=== PATIENT | female | born 1950 | race Caucasian/White ===

== ENCOUNTER 2019-10-13 10:00 | Outpatient (RCR) | payer MEDICARE, SELFPAY | END 2019-10-13 23:59 | disposition home or self-care (01) | LOC: ANHAUDIO 10:00 | PROVIDERS: Visit Provider Family Medicine | DX: Z46.1 Encounter for fitting and adjustment of hearing aid (principal) | CPT/HCPCS: 99199; V5160; V5261 ==

== ENCOUNTER → 2019-12-20 12:17 | Outpatient (CLI) | payer MEDICARE, SELFPAY ==
--- NOTE | ~2019-12-20 | MM_ITS ---
EXAMINATION: MM screening [facility] BI w jose m HISTORY: Screening mammogram TECHNIQUE: Craniocaudal and mediolateral oblique 3-D tomosynthesis images were obtained and synthetic 2-D images were generated. CAD analysis was submitted and interpreted. COMPARISON: 12/07/2018, 09/09/2017, 07/17/2015 BREAST PARENCHYMAL COMPOSITION: There are scattered areas of fibroglandular density. FINDINGS: There is no evidence of suspicious mass, calcification, or architectural distortion to sugg est malignancy in either breast. There has been no suspicious interval change. IMPRESSION: 1. No mammographic evidence of malignancy. 2. Recommend routine screening mammography in one year. BI-RADS Category 1: Negative Reviewed, dictated and finalized at location A. 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
--- NOTE | ~2019-12-20 | DEXA_ITS ---
Bone Density Report Name: Saritha Blackburn Age: 69 Sex: Female Ethnicity: White Date of : 1950 Indication: osteopenia; postmenopausal Referring Provider: ELVIRA SHEA Study: Bone densitometry was performed. Exam Date: December 20, 2019 Accession number: [id number] Bone Density: Region BMD T-score Z-score Classification AP Spine (L1, L2, L3) 0.768 -2.3 -0.3 Osteopenia Femoral Neck (Left) 0.730 -1.1 0.6 Osteopenia Total Hip (Left) 0.898 -0.4 1.0 Normal Femoral Neck (Right) 0.734 -1.0 0.6 Normal Total Hip (Right) 0.867 -0.6 0.8 Normal Total Hip Mean 0.883 -0.5 0.9 Normal World Health Organization criteria for BMD impression classify patients as: Normal (T-score at or above -1.0), Osteopenia (T-score between -1.0 and -2.5), or Osteoporosis (T-score at or below -2.5). 10-year Fracture Risk(1): Major Osteoporotic Fracture 8.5% Hip Fracture 0.8% Reported Risk Factors: [place] (), Neck BMD=0.730, BMI=29.8 (1) FRAX(R) Version 3.08. Fracture probability calculated for an untreated patient. Fracture probability may be lower if the patient has received treatment. Previous Exams: Region Exam Age BMD T-score BMD Change BMD Change Date g/cm2 vs Baseline vs Previous AP Spine(L1, L2, L3) 12/20/2019 69 0.768 -2.3 -0.030* -0.038* 09/09/2017 66 0.806 -1.9 0.008 0.011 02/18/2016 65 0.795 -2.0 -0.002 0.032* 03/09/2009 58 0.763 -2.3 -0.035* -0.035* 09/17/2005 54 0.797 -2.0 Total Hip(Left) 12/20/2019 69 0.898 -0.4 -0.067 -0.089 09/09/2017 66 0.987 0.4 0.022 0.004 02/18/2016 65 0.983 0.3 0.018 0.127 03/09/2009 58 0.856 -0.7 -0.110 -0.110 09/17/2005 54 0.965 0.2 Total Hip(Right) 12/20/2019 69 0.867 -0.6 -0.056* -0.076* 09/09/2017 66 0.943 0.0 0.020 0.029* 02/18/2016 65 0.915 -0.2 -0.009 0.048* 03/09/2009 58 0.867 -0.6 -0.057* -0.057* 09/17/2005 54 0.924 -0.2 *Denotes significance at 95% confidence level, LSC for AP Spine = 0.022 g/cm2, LSC for Total Hip = 0.027 g/cm2 Clinical Information Provided by Patient: Patient maximum height was 63 Menopause Age: 45 No regular weight bearing exercise Drinks caffeinated beverages Onset of menses at age 13 Number of children 2
== END ==
PROVIDERS: Visit Provider Obstetrics & Gynecology Gynecology
DX: Z12.31 Encounter for screening mammogram for malignant neoplasm of breast (principal); Z78.0 Asymptomatic menopausal state; M85.88 Other specified disorders of bone density and structure, other site; M85.852 Other specified disorders of bone density and structure, left thigh
CPT/HCPCS: 77063; 77067; 77080

== ENCOUNTER → 2021-02-21 12:15 | Outpatient (CLI) | payer MEDICARE, SELFPAY ==
--- NOTE | ~2021-02-21 | MM_ITS ---
EXAMINATION: MM screening [facility] BI w jose m HISTORY: Screening mammogram TECHNIQUE: Craniocaudal and mediolateral oblique 3-D tomosynthesis images were obtained and synthetic 2-D images were generated. CAD analysis was submitted and interpreted. COMPARISON: 12/20/2019, 12/07/2018, 09/09/2017 BREAST PARENCHYMAL COMPOSITION: There are scattered areas of fibroglandular density. FINDINGS: There is no evidence of suspicious mass, calcification, or architectural distortion to sugg est malignancy in either breast. There has been no suspicious interval change. IMPRESSION: 1. No mammographic evidence of malignancy. 2. Recommend routine screening mammography in one year. BI-RADS Category 1: Negative Reviewed, dictated and finalized at location A.
== END ==
PROVIDERS: PCP Family Medicine; Visit Provider Obstetrics & Gynecology Gynecology
DX: Z12.31 Encounter for screening mammogram for malignant neoplasm of breast (principal)
CPT/HCPCS: 77063; 77067

== ENCOUNTER 2022-02-17 01:13 | Day surgery (SDC) | payer MEDICARE, SELFPAY ==
[2022-02-11 09:45] VITALS: BMI 30.2
[2022-02-17 10:18] VITALS: BP 143/91; PULSE 70; RESP 20; TEMP 36.2; O2SAT 97; BMI 30.4
[2022-02-17] MEDS: LACTATED RINGERS 1,000 ML 150 ML IV CONT (10:26)
--- NOTE | 2022-02-17 10:26 | WPDANESEPPF ---
Anes - Initial Pre Proc Eval Procedure: Operation Date: 02/17/22 11:00 Proposed Procedures p Esophagogastroduodenoscopy - Lenny Brooks MD Date/Time: 02/17/22 10:26 Surgeon: Lenny Brooks MD Pre Op Diagnosis: dysphagia Patient Data Age: 71 Gender: F Height: 1.57 m Weight: 75.6 kg Last Vital Signs Temp 36.2 C L 02/17/22 10:18 Pulse 70 02/17/22 10:18 Resp 20 02/17/22 10:18 BP 143/91 H 02/17/22 10:18 Pulse Ox 97 02/17/22 10:18 Allergies Allergy/AdvReac Type Severity Reaction Status Date / Time No Known Allergies Allergy Verified 02/17/22 10:16 Home Medications Medication Instructions Recorded Confirmed Type multivit with 1 tablet PO DAILY 03/25/21 02/11/22 History lcqskftr-euct-YM-lutein 8 mg iron-400 mcg-300 mcg tablet omega-3 fatty acids 1,000 mg 2,000 mg PO DAILY cap 03/25/21 02/11/22 History capsule oxybutynin chloride 10 mg 10 mg PO DAILY 03/25/21 02/11/22 History tablet,extended release 24 hr amitriptyline 25 mg tablet 25 mg PO QHS #30 tablet 02/05/22 02/11/22 Rx cholecalciferol (vitamin D3) 125 125 mcg PO DAILY 02/05/22 02/11/22 History mcg (5,000 unit) disintegrating tablet atorvastatin 20 mg PO DAILY 02/11/22 02/11/22 History vit C,P-Sf-slubr-lutein-zeaxan 1 tablet PO DAILY 02/11/22 02/11/22 History [PreserVision AREDS-2] Patient hx anesthesia problems: none Family hx anesthesia problems: none Results Review: All pre-operative results and documents have been reviewed as part of the pre-operative evaluation. [facility] Past Medical History Medical History Hepatitis C antibody test positive (~08/21/17) HCV RNA test negative Metabolic syndrome X Mixed hyperlipidemia Prediabetes Prehypertension Vitamin D deficiency Surgical History Surgical History History of blepharoplasty ~2003 History of cataract removal with insertion of prosthetic lens (~08/02/19) bilateral, 09-02-19 History of tubal ligation (~1979) Family History Family History Mother Hypertension Family history of cardiovascular disease Family history of Alzheimer's disease Diabetes mellitus Family history of glaucoma Family history of elevated blood lipids Acute myocardial infarction Family history of coronary artery disease Sibling Hypertension Family history of elevated blood lipids Social History Social History Years smoked: 3 Smoking status: Former smoker Tobacco type: cigarettes Smoking end date: 11/02/71 Alcohol intake: current Alcohol use details: very rare alcohol use Substance use: never Substance use type: does not use Living arrangements: with family Spiritual care concerns: No Anes - Eval Final PreProcedure Day of Procedure 02/17/22 10:26 Patient weight: obese Heart: regular rate and rhythm Lungs: clear to auscultation Airway: Mallampati scale class II and special considerations retrognathia Neurological: alert and oriented Last oral intake: >/= 8 hours ASA classification: II Emergent: no Anesthetic plan: proceed Anesthesia type and monitoring: general GIVS and standard monitoring Results Review: All pre-operative results and documents have been reviewed as part of the pre-operative evaluation. Informed Consent: The patient's anesthetic plan and its attendant risks and benefits were discussed with the patient/family/POA. Questions were solicited and answers provided to the satisfaction of the patient/family/POA.
--- NOTE | 2022-02-17 10:27 | WPDHPUPDATE1 ---
History and Physical Update Update Date/Time: 02/17/22 10:27 History and Physical has been reviewed, including an updated exam of the patient. There are NO changes in the patient's condition. Risks, benefits, and alternatives have been discussed and questions answered. Patient agrees to proceed with procedure.
[2022-02-17 11:29] VITALS: BP 117/75; PULSE 70; RESP 15; O2SAT 95
[2022-02-17 11:39] VITALS: BP 108/80; PULSE 74; RESP 13; O2SAT 98
[2022-02-17 11:49] VITALS: BP 139/89; PULSE 68; RESP 17; O2SAT 98
== END 2022-02-17 12:00 | disposition home or self-care (01) ==
PROVIDERS: PCP Family Medicine; Visit Provider Internal Medicine Gastroenterology
PROC: 0DJ08ZZ Inspection of Upper Intestinal Tract, Via Natural or Artificial Opening Endoscopic (ICD-10-PCS; CPT 43235; principal; 2022-02-17 11:00)
DX: F45.8 Other somatoform disorders (principal); E78.2 Mixed hyperlipidemia; R73.03 Prediabetes; E55.9 Vitamin D deficiency, unspecified; Z87.891 Personal history of nicotine dependence; E66.9 Obesity, unspecified; Z68.30 Body mass index [BMI] 30.0-30.9, adult
CPT/HCPCS: 43239; 87081; J2704; J7120

== ENCOUNTER → 2022-03-13 10:16 | Outpatient (CLI) | payer MEDICARE, SELFPAY ==
--- NOTE | ~2022-03-13 | MM_ITS ---
EXAMINATION: MM screening [facility] BI w jose m HISTORY: Screening TECHNIQUE: Craniocaudal and mediolateral oblique 3-D tomosynthesis images were obtained and synthetic 2-D images were generated. CAD analysis was submitted and interpreted. COMPARISON: Comparison to multiple prior studies sequentially, with oldest reviewed study dated 07/17. BREAST PARENCHYMAL COMPOSITION: There are scattered areas of fibroglandular density. FINDINGS: There is no evidence of suspicious mass, calcification, or architectural distortion to sugg est malignancy in either breast. There has been no suspicious interval change. IMPRESSION: 1. No mammographic evidence of malignancy. 2. Recommend routine screening mammography in one year. BI-RADS Category 1: Negative Reviewed, dictated and finalized at location A.
--- NOTE | ~2022-03-13 | DEXA_ITS ---
Bone Density Report Name: VAISHNAVI WELSH Age: 71 Sex: Female Ethnicity: White Date of : 1950 Indication: osteopenia; postmenopausal Referring Provider: ELVIRA SHEA Study: Bone densitometry was performed. Exam Date: March 13, 2022 Accession number: [id number] Bone Density: Region BMD T-score Z-score Classification AP Spine (L1, L2, L3) 0.793 -2.0 0.0 Osteopenia Femoral Neck (Left) 0.721 -1.2 0.7 Osteopenia Total Hip (Left) 0.899 -0.3 1.2 Normal Femoral Neck (Right) 0.734 -1.0 0.8 Normal Total Hip (Right) 0.879 -0.5 1.0 Normal Total Hip Mean 0.889 -0.4 1.1 Normal World Health Organization criteria for BMD impression classify patients as: Normal (T-score at or above -1.0), Osteopenia (T-score between -1.0 and -2.5), or Osteoporosis (T-score at or below -2.5). 10-year Fracture Risk(1): Major Osteoporotic Fracture 8.8% Hip Fracture 1.0% Reported Risk Factors: [place] (), Neck BMD=0.721, BMI=30.2 (1) FRAX(R) Version 3.08. Fracture probability calculated for an untreated patient. Fracture probability may be lower if the patient has received treatment. Previous Exams: Region Exam Age BMD T-score BMD Change BMD Change Date g/cm2 vs Baseline vs Previous AP Spine(L1, L2, L3) 03/13/2022 71 0.793 -2.0 -0.004 0.025* 12/20/2019 69 0.768 -2.3 -0.030* -0.038* 09/09/2017 66 0.806 -1.9 0.008 0.011 02/18/2016 65 0.795 -2.0 -0.002 0.032* 03/09/2009 58 0.763 -2.3 -0.035* -0.035* 09/17/2005 54 0.797 -2.0 Total Hip(Left) 03/13/2022 71 0.899 -0.3 -0.066 0.002 12/20/2019 69 0.898 -0.4 -0.067 -0.089 09/09/2017 66 0.987 0.4 0.022 0.004 02/18/2016 65 0.983 0.3 0.018 0.127 03/09/2009 58 0.856 -0.7 -0.110 -0.110 09/17/2005 54 0.965 0.2 Total Hip(Right) 03/13/2022 71 0.879 -0.5 -0.045* 0.012 12/20/2019 69 0.867 -0.6 -0.056* -0.076* 09/09/2017 66 0.943 0.0 0.020 0.029* 02/18/2016 65 0.915 -0.2 -0.009 0.048* 03/09/2009 58 0.867 -0.6 -0.057* -0.057* 09/17/2005 54 0.924 -0.2 *Denotes significance at 95% confidence level, LSC for AP Spine = 0.022 g/cm2, LSC for Total Hip = 0.027 g/cm2 Clinical Information Provided by Patient: Has use
== END ==
PROVIDERS: PCP Family Medicine; Visit Provider Obstetrics & Gynecology Gynecology
DX: Z12.31 Encounter for screening mammogram for malignant neoplasm of breast (principal); Z78.0 Asymptomatic menopausal state; M85.89 Other specified disorders of bone density and structure, multiple sites
CPT/HCPCS: 77063; 77067; 77080

== ENCOUNTER 2022-06-16 08:09 | Outpatient (CLI) | payer MEDICARE, SELFPAY ==
[2022-06-16 18:43] LABS: Hematocrit 49.8 % (37.0-47.0); Hemoglobin 15.8 g/dL (12.0-15.0); Mean Corpuscular HGB Conc 31.7 g/dl (32-36); Mean Corpuscular Hemoglobin 30.7 pg (26-34); Mean Corpuscular Volume 96.9 fl (80-100); Mean Platelet Volume 10.3 fl (7.4-10.4); Platelet Count Result 309 k/mm3 (150-375); Red Blood Count 5.14 M/mm3 (4.2-5.4); Red Cell Distribution Width 13.2 % (11.5-14.5); White Blood Count 5.8 K/mm3 (4.5-10.0)
[2022-06-16 19:14] LABS: Alanine Aminotransferase 30 U/L (6-35); Albumin Level 4.6 g/dL (3.5-5.1); Alkaline Phosphatase 48 U/L (38-126); Anion Gap 10 mmol/L (8-16); Aspartate Amino Transferase 36 U/L (14-36); Bilirubin,Total 1.6 mg/dL (0.2-1.3); Blood Urea Nitrogen 18 mg/dL (7-17); Calcium 9.8 mg/dL (8.4-10.2); Carbon Dioxide 30 mmol/L (22-30); Chloride 100 mmol/L (98-107); Cholesterol 214 mg/dL (0-200); Estimated Glomerular Filt Rate > 60; Glucose 77 mg/dL (65-110); HDL Direct 43 mg/dL; Potassium 4.5 mmol/L (3.4-5.0); Sodium 140 mmol/L (137-145); Triglycerides 174 mg/dL (<150)
[2022-06-16 19:32] LABS: LDL Cholesterol Direct 117 mg/dL
[2022-06-16 20:52] LABS: Vitamin D 25 Hydroxy 86.6 ng/mL
== END 2022-06-16 08:10 | disposition home or self-care (01) ==
LOC: ANHGOSHLAB 08:10
PROVIDERS: PCP Family Medicine; Visit Provider Nurse Practitioner
DX: Z13.6 Encounter for screening for cardiovascular disorders (principal); E78.2 Mixed hyperlipidemia; Z13.29 Encounter for screening for other suspected endocrine disorder; E55.9 Vitamin D deficiency, unspecified
CPT/HCPCS: 36415; 80053; 80061; 82306; 84443; 85027

== ENCOUNTER → 2023-03-16 10:03 | Outpatient (CLI) | payer MEDICARE, SELFPAY ==
--- NOTE | ~2023-03-16 | MM_ITS ---
EXAMINATION: MM screening [facility] BI w jose m HISTORY: Screening mammogram TECHNIQUE: Craniocaudal and mediolateral oblique 3-D tomosynthesis images were obtained and synthetic 2-D images were generated. CAD analysis was submitted and interpreted. COMPARISON: 03/13/2022, 02/21/2021, 12/20/2019 BREAST PARENCHYMAL COMPOSITION: The breasts are heterogeneously dense, which may obscure small masses . FINDINGS: No suspicious mass, calcification, or architectural distortion are identified in either louise ast to suggest malignancy. There has been no suspicious interval change. IMPRESSION: 1. No mammographic evidence of malignancy. 2. Recommend routine screening mammography in one year. BI-RADS Category 1: Negative Reviewed, dictated and finalized at location A.
== END ==
PROVIDERS: PCP Family Medicine; Visit Provider Obstetrics & Gynecology Gynecology
DX: Z12.31 Encounter for screening mammogram for malignant neoplasm of breast (principal)
CPT/HCPCS: 77063; 77067

== ENCOUNTER 2024-03-23 10:33 | Outpatient (CLI) | payer MEDICARE, SELFPAY ==
--- NOTE | ~2024-03-23 | DEXA_ITS ---
Bone Density Report Name: VAISHNAVI WELSH Age: 73 Sex: Female Ethnicity: White Date of : 1950 Indication: osteopenia; height loss; Referring Provider: ELVIRA SHEA Study: Bone densitometry was performed. Exam Date: March 23, 2024 Accession number: [id number] Bone Density: Region BMD T-score Z-score Classification AP Spine (L1, L2, L3) 0.797 -2.0 0.2 Osteopenia Femoral Neck (Left) 0.713 -1.2 0.7 Osteopenia Total Hip (Left) 0.821 -1.0 0.6 Normal Femoral Neck (Right) 0.668 -1.6 0.3 Osteopenia Total Hip (Right) 0.807 -1.1 0.5 Osteopenia Total Hip Mean 0.814 -1.1 0.6 Osteopenia World Health Organization criteria for BMD impression classify patients as: Normal (T-score at or above -1.0), Osteopenia (T-score between -1.0 and -2.5), or Osteoporosis (T-score at or below -2.5). 10-year Fracture Risk(1): Major Osteoporotic Fracture 11% Hip Fracture 1.9% Reported Risk Factors: [place] (), Neck BMD=0.668, BMI=27.5 (1) FRAX(R) Version 3.08. Fracture probability calculated for an untreated patient. Fracture probability may be lower if the patient has received treatment. Previous Exams: Region Exam Age BMD T-score BMD Change BMD Change Date g/cm2 vs Baseline vs Previous AP Spine(L1, L2, L3) 03/23/2024 73 0.797 -2.0 0.000 0.004 03/13/2022 71 0.793 -2.0 -0.004 0.025* 12/20/2019 69 0.768 -2.3 -0.030* -0.038* 09/09/2017 66 0.806 -1.9 0.008 0.011 02/18/2016 65 0.795 -2.0 -0.002 0.032* 03/09/2009 58 0.763 -2.3 -0.035* -0.035* 09/17/2005 54 0.797 -2.0 Total Hip(Left) 03/23/2024 73 0.821 -1.0 -0.145 -0.079* 03/13/2022 71 0.899 -0.3 -0.066 0.002 12/20/2019 69 0.898 -0.4 -0.067 -0.089 09/09/2017 66 0.987 0.4 0.022 0.004 02/18/2016 65 0.983 0.3 0.018 0.127 03/09/2009 58 0.856 -0.7 -0.110 -0.110 09/17/2005 54 0.965 0.2 Total Hip(Right) 03/23/2024 73 0.807 -1.1 -0.117* -0.073* 03/13/2022 71 0.879 -0.5 -0.045* 0.012 12/20/2019 69 0.867 -0.6 -0.056* -0.076* 09/09/2017 66 0.943 0.0 0.020 0.029* 02/18/2016 65 0.915 -0.2 -0.009 0.048* 03/09/2009 58 0.867 -0.6 -0.057* -0.057* 09/17/2005 54 0.924 -0.2 *Denotes significance at 95% con
--- NOTE | ~2024-03-23 | MM_ITS ---
EXAMINATION: MM screening [facility] BI w jose m HISTORY: Screening TECHNIQUE: Craniocaudal and mediolateral oblique 3-D tomosynthesis images were obtained and synthetic 2-D images were generated. CAD analysis was submitted and interpreted. COMPARISON: Comparison to multiple prior studies sequentially, with oldest reviewed study dated 06/2017. BREAST PARENCHYMAL COMPOSITION: Not dense: There are scattered areas of fibroglandular density. FINDINGS: There is no evidence of suspicious mass, calcification, or architectural distortion to sugg est malignancy in either breast. There has been no suspicious interval change. IMPRESSION: 1. No mammographic evidence of malignancy. 2. Recommend routine screening mammography in one year. BI-RADS Category 1: Negative Reviewed, dictated and finalized at location A.
== END 2024-03-23 10:34 ==
LOC: MICIMG 10:35
PROVIDERS: PCP Family Medicine; Visit Provider Obstetrics & Gynecology Gynecology
DX: Z12.31 Encounter for screening mammogram for malignant neoplasm of breast (principal); M85.89 Other specified disorders of bone density and structure, multiple sites; R29.890 Loss of height; Z78.0 Asymptomatic menopausal state
CPT/HCPCS: 77063; 77067; 77080

== ENCOUNTER 2025-01-16 13:23 | Outpatient (CLI) | payer MEDICARE, SELFPAY ==
--- NOTE | ~2025-01-16 | XR_ITS ---
XR knee RT 3V Ordering provider: Mallorie Draper, SCREEDMAN/LABORER-C History: . M25.561 - Pain in right knee . Comparison: None. FINDINGS: BONES: No acute fracture or dislocation. JOINT SPACES: Normal. SOFT TISSUES: Atherosclerotic changes. IMPRESSION: No acute osseous abnormality right knee. Reviewed, dictated and finalized at location A.
--- NOTE | ~2025-01-16 | XR_ITS ---
XR hip BI 2V w AP pelvis Ordering provider: Mallorie Draper CORPORATE WEBMASTER-C History: . M25.551 - Pain in right hip . Comparison: None. FINDINGS: BONES: No acute fracture or dislocation. HIP JOINT SPACES: Bilateral severe osteoarthritic changes. SACROILIAC JOINT SPACES/LUMBAR SPINE: The sacroiliac joint spaces are normal. Mild degenerative bond es of the visualized lower lumbar spine. PUBIC SYMPHYSIS: Normal. SOFT TISSUES: Normal. IMPRESSION: No acute osseous abnormality of the bilateral hips and pelvis. Bilateral severe hip osteoarthritic changes. Reviewed, dictated and finalized at location A.
--- NOTE | ~2025-01-16 | XR_ITS ---
XR_CERV2-3V_CR Ordering provider: Mallorie Draper JOGGLE PRESS OPERATOR-C History: . M54.2 - Cervicalgia . Comparison: None. FINDINGS: VERTEBRAL BODIES: Normal height and alignment. No visible fracture or subluxation. The dens is intact . Degenerative changes of the spine. DISK SPACES: Narrowing of the disc C5-C6 and C6-C7. Multilevel facet joint disease. Multilevel uncove rtebral joint osteoarthritic changes. PARASPINOUS SOFT TISSUES: No prevertebral soft tissue swelling. IMPRESSION: No acute osseous abnormality cervical spine. Multilevel degenerative disc disease. Reviewed, dictated and finalized at location A.
--- NOTE | ~2025-01-16 | XR_ITS ---
XR shoulder LT min 2V Ordering provider: Mallorie Draper NP-C History: . M25.512 - Pain in left shoulder . Comparison: None. FINDINGS: BONES: No acute fracture or dislocation. Degenerative changes in the greater tuberosity area. JOINT SPACES: The acromioclavicular joint shows osteoarthritic changes.. The glenohumeral joint is no rmal. SOFT TISSUES: Normal. IMPRESSION: No acute osseous abnormality left shoulder. Reviewed, dictated and finalized at location A.
--- NOTE | ~2025-01-16 | XR_ITS ---
XR shoulder RT min 2V Ordering provider: CARMELLA DamonC History: . M25.519 - Pain in unspecified shoulder . Comparison: None. FINDINGS: BONES: No acute fracture or dislocation. Degenerative changes in the greater tuberosity. JOINT SPACES: The acromioclavicular joint is widened due to postsurgical changes. The glenohumeral brody int is normal. SOFT TISSUES: Normal. IMPRESSION: No acute osseous abnormality right shoulder. Reviewed, dictated and finalized at location A.
== END 2025-01-16 13:24 | disposition home or self-care (01) ==
LOC: GOSHIMG 13:24
PROVIDERS: PCP Nurse Practitioner; Visit Provider Nurse Practitioner
DX: M16.0 Bilateral primary osteoarthritis of hip (principal); M50.322 Other cervical disc degeneration at C5-C6 level; M50.323 Other cervical disc degeneration at C6-C7 level; M25.511 Pain in right shoulder; M25.512 Pain in left shoulder; M25.561 Pain in right knee
CPT/HCPCS: 72040; 73030; 73521; 73562

== ENCOUNTER 2025-03-28 10:26 | Outpatient (CLI) | payer MEDICARE, SELFPAY ==
--- NOTE | ~2025-03-28 | MM_ITS ---
EXAMINATION: MM screening [facility] BI w jose m HISTORY: Screening TECHNIQUE: Craniocaudal and mediolateral oblique 3-D tomosynthesis images were obtained and synthetic 2-D images were generated. CAD analysis was submitted and interpreted. COMPARISON: Comparison to multiple prior studies sequentially, with oldest reviewed study dated 03/2019. BREAST PARENCHYMAL COMPOSITION: Not dense: There are scattered areas of fibroglandular density. FINDINGS: There are developing periareolar asymmetries of the left breast in the upper outer quadrant , anterior third. The right breast is stable without evidence for malignancy. IMPRESSION: 1. Developing left breast periareolar asymmetries. 2. Additional mammographic views and possible breast ultrasound are recommended. BI-RADS Category 0: Incomplete: Needs additional imaging evaluation. Reviewed, dictated and finalized at location A. IMPRESSION: 1. Developing left breast periareolar asymmetries. 2. Additional mammographic views and possible breast ultrasound are recommended . BI-RADS Category 0: Incomplete: Needs additional imaging evaluation.
== END 2025-03-28 10:27 | disposition home or self-care (01) ==
LOC: MICIMG 10:27
PROVIDERS: PCP Family Medicine; Visit Provider Obstetrics & Gynecology Gynecology
DX: Z12.31 Encounter for screening mammogram for malignant neoplasm of breast (principal)
CPT/HCPCS: 77063; 77067

== ENCOUNTER 2025-04-18 08:19 | Outpatient (CLI) | payer MEDICARE, SELFPAY ==
--- NOTE | ~2025-04-18 | MMUS_ITS ---
EXAMINATION: MM diagnostic [facility] LT w jose m, US breast LT limited HISTORY: Follow-up left breast asymmetry TECHNIQUE: Additional 3-D tomosynthesis images of the left breast were performed and synthetic 2-D im ages were generated. CAD analysis was submitted and interpreted. High resolution Limited left breast ultrasound was performed. COMPARISON: Comparison to multiple prior studies sequentially, with oldest reviewed study dated 12/20. BREAST PARENCHYMAL COMPOSITION: Dense: The breasts are heterogeneously dense, which may obscure small masses FINDINGS: MAMMOGRAPHIC FINDINGS: Focal area of asymmetry near the areola in the upper outer quadrant is less dense with spot compressi on views, compatible with superimposed fibroglandular tissue. No discrete mass, suspicious calcificat ions or architectural distortion in the left breast. ULTRASOUND: Limited left breast ultrasound: Normal heterogeneous echotexture without focal solid or cystic mass. IMPRESSION: 1. No evidence for malignancy in the left breast. 2. Routine yearly screening mammogram and regular clinical breast examination are recommended. BI-RADS Category 1: Negative Reviewed, dictated and finalized at location A. IMPRESSION: 1. No evidence for malignancy in the left breast. 2. Routine yearly screening mammogram and regular clinical breast examination a re recommended. BI-RADS Category 1: Negative
== END 2025-04-18 08:20 | disposition home or self-care (01) ==
LOC: MICIMG 08:19
PROVIDERS: PCP Family Medicine; Visit Provider Obstetrics & Gynecology Gynecology
DX: R92.8 Other abnormal and inconclusive findings on diagnostic imaging of breast (principal)
CPT/HCPCS: 76642; 77061; 77065; G0279

== ENCOUNTER 2025-08-18 13:34 | Emergency (ER) | payer MEDICARE, SELFPAY ==
[2025-08-18 13:45] VITALS: BP 148/79; PULSE 96; RESP 16; TEMP 36.5; O2SAT 98
--- NOTE | 2025-08-18 14:39 | ED.SKABFB ---
HPI - Skin/Abscess/Foreign Bdy General Chief complaint: Skin/Abscess/Foreign Body Stated complaint: spot on left arm Time Seen by Provider: 08/18/25 14:20 Source: patient, RN notes reviewed and old records reviewed Mode of arrival: ambulatory Limitations: no limitations History of Present Illness HPI narrative: 74 year old female presents to express care with complaints of insect bite shad itching to area on Thursday and Thursday and use ting to the left antecubital area that occurred on Thursday. Patient reports that she has itching ro area on Thursday and Thursday and has used several OTC ointments to area. She states that she did have a pimple like lesion develop in area and she squeezed the lesion with some white material expressed. She is here today with concern for continued dime size raised bump in left inner antecubical MD complaint: insect bite/sting and other (minimal raised red lesion left antecubical) Onset (ago): day(s) (on Thursday 5 days ago) Location: LUE (inner antecubical) Severity: mild Treatments prior to arrival: attempted to drain pus at home and other (OTC ointments) Related Data Home Medications ?Medication ?Instructions ?Recorded ?Confirmed ?Last Taken ?Type dvwctwtq-hlaj-necy 8 mg-folic 400 1 tablet PO DAILY 03/25/21 05/22/25 02/16/22 History mcg-K 50 mcg-lutein 300 mcg tablet (Centrum Silver Women) oxybutynin chloride 10 mg 10 mg PO DAILY 03/25/21 05/22/25 02/16/22 History tablet,extended release 24 hr cholecalciferol (vitamin D3) 125 125 mcg PO DAILY 02/05/22 05/22/25 02/16/22 History mcg (5,000 unit) disintegrating tablet vit C 250 mg-vit E 90 mg-zinc 40 1 tablet PO DAILY 02/11/22 05/22/25 02/16/22 History mg-copper 1 [id number]-vppchs capsule (PreserVision AREDS-2) calcium carbonate (Calcium 600) 600 mg PO DAILY 10/13/22 05/22/25 Unknown History ibuprofen 200 mg capsule 200 mg PO Q6H PRN 01/20/25 05/22/25 Unknown History mupirocin 2 % topical ointment 1 applic topical BID PRN 03/08/25 05/22/25 Unknown History ([facility]) omega-3 fatty acids 1,000 mg 1,200 mg PO DAILY PRN 03/08/25 05/22/25 Unknown History capsule Allergies Allergy/AdvReac Type Severity Reaction Status Date / Time ciprofloxacin (From Cipro) AdvReac Intermediate Nausea Verified 08/18/25 13:59 Review of Systems Review of Systems: CONSTITUTIONAL: Denies fever, chills, or sweats. CARDIOVASCULAR: Denies chest pain, palpitations, or edema. RESPIRATORY: Denies cough or dyspnea. SKIN: Reports insect bite sting to left inner arm on Thursday with 2 days of itch, pimple type of lesion squeezed with white material expressed, concern over continued minimal raised bump left inner arm, no pustule or vesicles MUSCULOSKELETAL: Denies joint pain or myalgia. NEUROLOGIC: Denies headache, numbness, or weakness. All systems reviewed & are unremarkable except as noted in HPI and below PMFSH Past Medical History Medical History Hepatitis C antibody test positive (~08/21/17) HCV RNA test negative Prehypertension Vitamin D deficiency Metabolic syndrome X Prediabetes Mixed hyperlipidemia Surgical History Surgical History History of blepharoplasty ~2003 History of cataract removal with insertion of prosthetic lens (~08/02/19) bilateral, 09-02-19 History of tubal ligation (~1979) Family History Family History Mother Hypertension Family history of cardiovascular disease Family history of Alzheimer's disease Diabetes mellitus Family history of glaucoma Family history of elevated blood lipids Acute myocardial infarction Family history of coronary artery disease Sibling Hypertension Family history of elevated blood lipids Grandparent Heart disease Social History Social History Years smoked: 3 Smoking status: Former smoker Tobacco type: cigarettes Smoking end date: 11/02/71 Alcohol intake: current Alcohol use details: very rare alcohol use Substance use: never Substance use type: does not use Do You Feel Safe in your Home?: Yes Lack of Transportation: No Lack of Food: Never True Current Housing: I Have Housing Concerned About Future Housing: No Difficulty Paying Gas/Electric Bills: No Difficulty Paying for Meds: No Currently Unemployed: No Education: High School Diploma/GED Difficulty w/ Childcare or Family Care: No Living arrangements: with family Additional living arrangements comments: Spouse Occupation/Education: retired Gender identity (if verbalized by the patient): Female Sexual Orientation (if Verbalized by the Patient): Straight or Heterosexual Spiritual care concerns: No Comments At time of signature, agree with nursing past medical, surgical, social and family history. There is no relevant family history pertinent to the presenting complaint Exam Narrative: GENERAL: Well-appearing, well-nourished, and in no acute distress. HEAD: Normocephalic, atraumatic. EYES: PERRLA, conjunctivae clear, and EOMI. ENT: Mucous membranes moist. Oropharynx without edema, erythema or lesions. NECK: Supple. No lymphadenopathy CHEST: Clear to auscultation. No respiratory distress. SAO2 98% on room air HEART: Regular rate and rhythm. SKIN: Warm, dry.? Minimally raised red bump to inner left arm at antecubital region with no vesicle or pustule formation no present itch NEURO:? Alert and oriented x3. PSYCH: Normal mood and affect,irritable Course Course Emergency Course: Patient is aware of diagnosis, understands and agrees to treatment plan.? Anticipatory guidance given.? Patient agrees to follow-up as directed and is aware of reasons to seek care at the emergency department. Portions of this record may have been created with voice recognition software Level of Care: Express Care Visit Vital Signs Vital signs: Vital Signs Temperature 36.5 C 08/18/25 13:45 Pulse Rate 96 08/18/25 13:45 Respiratory Rate 16 08/18/25 13:45 Blood Pressure 148/79 H 08/18/25 13:45 Pulse Oximetry 98 08/18/25 13:45 Temperature 36.5 C 08/18/25 13:45 Pulse Rate 96 08/18/25 13:45 Respiratory Rate 16 08/18/25 13:45 Blood Pressure 148/79 H 08/18/25 13:45 Pulse Oximetry 98 08/18/25 13:45 Reviewed MDM - Skin/Abscess/Foreign Bdy MDM Narrative Medical decision making narrative: Does not appear at this time to be erythema multiforme, bullous, SJS, TEN; no evidence at this time to suggest RMSF, endocarditis or Lyme disease; patient looks well, nontoxic and is tolerating oral intake; no neurologic signs or symptoms; no headache, photophobia or neck pain; afebrile; appropriate for initial outpatient treatment; discussed the importance of follow-up, patient agrees; question, viral exanthema, contact dermatitis, allergic dermatitis, eczema, urticaria, [ xx ]. No soft palate or uvula edema, no tongue, lip edema or other mucosal involvement, no respiratory compromise, no stridor, no wheezing, no wheezing, no history of syncope, no hypotension, no nausea, vomiting, or diarrhea.? Instructed patient to go to nearest ER immediately for any worsening symptoms including but not limited to: fever, spreading rash, pain, sore throat, headache, dizziness, chest pain, trouble breathing, or any symptoms concerning to the patient. Differential Diagnosis Differential diagnosis: Likely insect bites, contact dermatitis and other (local allergic reaction to insect bite/sting) Medical Records Attestation: I reviewed the patient's medical records. Critical Care Time Critical Care Time Critical Care Time: No Discharge Plan Discharge Clinical Impression: Contact dermatitis Qualifiers: Contact dermatitis type: unspecified Contact dermatitis trigger: other trigger Qualified Code(s): L25.8 - Unspecified contact dermatitis due to other agents Insect bite Qualifiers: Encounter type: initial encounter Site of insect bite: upper arm Laterality: left Qualified Code(s): S40.862A - Insect bite (nonvenomous) of left upper arm, initial encounter Patient Disposition: Home Condition: Stable Instructions: Contact Dermatitis (ED) Additional Instructions: cleanse left antecubital area with warm water and liquid dial, rinse apply mupirocin has at home watch for any increasing infection--redness, swelling, drainage Tylenol or ibuprofen for any fever pain for package instructions follow up with PCP in 7-10 days for a wound check recheck if develop fever, chills, increasing symptom Go to the ER if your symptoms become worse of if ANY new symptoms develop Medrol Dosepak take as prescribed Zyrtec daily for the next 10 days Pepcid 20 mg daily for the next 10 days If your symptoms persist, change or worsen significantly before you can contact your personal physician then please, without delay, go to the emergency department for further evaluation. Follow-up with PCP in 7-10 days or sooner if needed Follow up with PCP soon in regards to your blood pressure which is elevated above threshold for referral. Blood pressure above 120/80 may indicate pre-hypertension.148/79 Patient Language: [place] Prescriptions: New methylprednisolone [Medrol (Tim)] 4 mg tablets,dose pack 4 mg PO QAM Qty: 21 0RF Rx Instructions: take with food No Action oxybutynin chloride 10 mg tablet extended release 24hr 10 mg PO DAILY Centrum Silver Women 8 mg iron-400 mcg-300 mcg tablet 1 tablet PO DAILY omega-3 fatty acids 1,000 mg capsule 1,200 mg PO DAILY PRN calcium carbonate [Calcium 600] 600 mg calcium (1,500 mg) tablet 600 mg PO DAILY cholecalciferol (vitamin D3) 125 mcg (5,000 unit) tablet,disintegrating 125 mcg PO DAILY ibuprofen 200 mg capsule 200 mg PO Q6H PRN mupirocin [Centany] 2 % ointment 1 applic topical BID PRN PreserVision AREDS-2 250-90-40-1 mg Capsule 1 tablet PO DAILY atorvastatin 20 mg tablet 20 mg PO DAILY Qty: 100 1RF Follow-up/Referrals: Benita Goss DO [Primary Care Provider, Family Practice] Time of Disposition: 14:43 Quality [place] Coma Scale Eyes: Open Verbal: Oriented and Alert Motor: Follows Commands [place] Coma Total Score: 15
== END 2025-08-18 14:47 | disposition home or self-care (01) ==
PROVIDERS: Emergency Provider Registered Nurse; PCP Family Medicine
DX: L25.8 Unspecified contact dermatitis due to other agents (principal); S50.862A Insect bite (nonvenomous) of left forearm, initial encounter; W57.XXXA Bitten or stung by nonvenomous insect and other nonvenomous arthropods, initial encounter; Z87.891 Personal history of nicotine dependence; E78.2 Mixed hyperlipidemia; R03.0 Elevated blood-pressure reading, without diagnosis of hypertension; R73.03 Prediabetes
CPT/HCPCS: 99213; G0463